=== PATIENT | male | born 1960 | race Caucasian/White ===

== ENCOUNTER → 2018-01-25 | Outpatient (CLI) | payer OTHER ==
[~2018-01-25] MED LIST: ARTHRITIS MEDICATION; CYCLOBENZAPRINE10 MG; MULTIVITAMINS1 EAC7; NORCO 5-325 TA1 EACH PO; VITCB500GO
== END ==
LOC: M.ULTRA 15:22
DX: R22.1 Localized swelling, mass and lump, neck (principal)

== ENCOUNTER 2019-04-22 07:27 | Inpatient (IN) | payer OTHER ==
[~2019-04-22] VITALS: Ht 182.9 cm
[2019-04-22 07:32] VITALS: BP 128/90
[2019-04-22 07:51] LABS: HEMATOCRIT 49.3 % (42.0-52.0); HEMOGLOBIN 16.4 gm/dL (14.0-18.0); MCH 32.6 pg (26.0-34.0); MCHC 33.2 g/dL (28.0-37.0); MCV 98.2 fL (80.0-100.0); MPV 7.1 fl. (7.2-11.1); NUCLEATED RBCS 0 /100WBC; PLATELET COUNT* 227 thou/uL (150-400); RBC 5.02 mil/uL (4.50-6.00); RDW-CV 13.2 % (10.5-14.5)
[2019-04-22 08:02] LABS: ANION GAP 12 mmol/L (7-16); BUN 16 mg/dL (7-18); CALCIUM 9.9 mg/dL (8.5-10.1); CHLORIDE 100 mmol/L (98-107); CO2 25 mmol/L (21-32); CREATININE 1.3 mg/dL (0.6-1.3); GLUCOSE 129 mg/dL (70-99); POTASSIUM 3.4 mmol/L (3.5-5.1); SODIUM 137 mmol/L (136-145)
[2019-04-22 08:11] LABS: ALBUMIN 3.8 g/dL (3.4-5.0); ALKALINE PHOSPHATASE 116 U/L (46-116); LIPASE 89 U/L (73-393); SGOT 19 U/L (15-37); SGPT 18 U/L (30-65); TOTAL BILIRUBIN 1.7 mg/dL (<0.1-1.0); TOTAL PROTEIN 7.4 g/dL (6.4-8.2); TROPONIN-I LEVEL <0.06 ng/mL (<0.06)
[2019-04-22 08:21] LABS: ABSOLUTE LYMPHOCYTES 0.4 thou/uL (0.8-5.3); ABSOLUTE MONOCYTES 0.8 thou/uL (0.0-1.2); ABSOLUTE NEUTROPHILS 11.8 thou/uL (1.6-8.1); PLATELET ESTIMATE ADEQUATE
--- NOTE | 2019-04-22 08:27 | NUR ---
JG NOTIFIED UPON PT RETURN FROM CT. PT CONNECTED TO MONITOR
[2019-04-22 10:26] LABS: PROTIME 10.1 Seconds (9.20-11.50)
[2019-04-22 10:29] VITALS: BP 83/53
[2019-04-22 12:00] VITALS: BP 106/68
[2019-04-22 14:00] VITALS: BP 92/56
--- NOTE | 2019-04-22 15:52 | 2DMMODE ---
[place] [address] 2 D/M-MODE ECHOCARDIOGRAM Name: DOLORES PATEL Room: [address] IN [facility]#: [id number] Admission: 04/22/19 Attend Phys: Larisa Sofia, Discharge: Date of : 58 Date of Service: 04/22/19 1552 Report #: [id number] THIS REPORT FOR: //name// APPROVED REPORT Study performed: 04/22/2019 09:30:40 EXAM: Comprehensive 2D, Doppler, and color-flow Echocardiogram Patient Location: In-Patient Room #: er Status: routine BSA: 1.73 HR: 74 bpm BP: 128/90 mmHg Rhythm: NSR Other Information Study Quality: Good Indications Syncope 2D Dimensions IVSd: 9.83 (7-11mm) LVOT Diam: 20.13 (18-24mm) LVDd: 37.11 mm PWd: 7.79 (7-11mm) LVDs: 21.50 (25-40mm) Aortic Root: 35.13 mm Volumes Left Atrial Volume (Systole) LA ESV Index: 22.00 mL/m2 Aortic Valve AoV Peak Ganesh.: 0.98 m/s AO Peak Gr.: 3.82 mmHg LVOT Max P.82 mmHg AO Mean Gr.: 2.08 mmHg LVOT Mean P.01 mmHg LVOT Max V: 0.67 m/s AO V2 VTI: 14.70 cm LVOT Mean V: 0.48 m/s RADHA (VTI): 2.61 cm2 LVOT V1 VTI: 12.04 cm Mitral Valve E/A Ratio: 1.18 MV Decel. Time: 202.87 ms MV E Max Ganesh.: 0.54 m/[place] [address] 2 D/M-MODE ECHOCARDIOGRAM Name: DOLORES PATEL Room: [address] IN [facility]#: [id number] Admission: 04/22/19 Attend Phys: Larisa Sofia, Discharge: Date of : 58 Date of Service: 04/22/19 1552 Report #: [id number] MV PHT: 58.83 ms MVA (PHT): 3.74 cm2 TDI E/Lateral E': 6.00 E/Medial E': 4.50 Medial E' Ganesh.: 0.12 m/s Lateral E' Ganesh.: 0.09 m/s Pulmonary Valve PV Peak Ganesh.: 0.72 m/s PV Peak Gr.: 2.08 mmHg Tricuspid Valve RAP Estimate: 5.00 mmHg TR Peak Gr.: 20.52 mmHg RVSP: 25.00 mmHg PA Pressure: 25.00 mmHg Left Ventricle The left ventricle is normal size. There is normal LV segmental wall motion. There is normal left ventricular wall thickness. Left ventricular systolic function is normal. LVEF is 60-65%. The left ventricular diastolic function is normal. Right Ventricle The right ventricle is normal size. The right ventricular systolic function is normal. Atria The left atrium size is normal. The right atrium size is normal. Aortic Valve The aortic valve is normal in structure. No aortic regurgitation is present. There is no aortic valvular stenosis. Mitral Valve The mitral valve is normal in structure. There is no mitral valve regurgitation noted. No evidence of mitral valve stenosis. Tricuspid Valve The tricuspid valve is normal in structure. Mild tricuspid regurgitation. No pulmonary hypertension. Pulmonic Valve The pulmonary valve is normal in structure. There is no pulmonic [place] [address] 2 D/M-MODE ECHOCARDIOGRAM Name: DOLORES PATEL Room: [address] IN [facility]#: [id number] Admission: 04/22/19 Attend Phys: Larisa Sofia, Discharge: Date of : 58 Date of Service: 04/22/19 1552 Report #: [id number] Great Vessels The aortic root is normal in size. IVC is normal in size and collapses >50% with inspiration. Pericardium Small anterior pericardial effusion. <Conclusion> The left ventricle is normal size. There is normal left ventricular wall thickness. Left ventricular systolic function is normal. LVEF is 60-65%. The left ventricular diastolic function is normal. There is normal LV segmental wall motion. Mild tricuspid regurgitation. No pulmonary hypertension. IVC is normal in size and collapses >50% with inspiration. Small anterior pericardial effusion. <ELECTRONICALLY SIGNED> By: Jaylon Christiansen MD, FACC 04/22/19 1552 1552 1552 Jaylon Christiansen MD, FACC /INF
--- NOTE | 2019-04-22 16:22 | EKG ---
[place] [address] ELECTROCARDIOGRAM REPORT Name: DOLORES PATEL Room: [place] [address] ADM IN .R.#: [id number] Admission: 04/22/19 Attend Phys: Larisa Sofia MD Discharge: Date of : 58 Report #: [id number] THIS REPORT FOR: //name// [facility] ED Test Date: 2019-04-22 Test Time: 07:32:31 Pat Name: DOLOERS PATEL Department: Room: [facility] Gender: Chief Quality Officer: JAMSHID : 1960 Requested By: James Reid Order Number: [id number] MD: Rudolph Quintero Measurements Intervals [place] Rate: 79 P: 85 [place]: 130 QRS: -73 QRSD: 103 T: 79 QT: 393 QTc: 451 Interpretive Statements Sinus rhythm Biatrial enlargement RSR' in V1 or V2, right VCD or RVH Inferior infarct, old No previous ECG available for comparison Electronically Signed On 04-22-2019 16:22:13 CDT by Rudolph Quintero [email or web address] <ELECTRONICALLY SIGNED> By: Rudolph Quintero MD, [facility] 04/22/19 1622 0732 0732 Rudolph Quintero MD, [facility] /EPI
[2019-04-22 17:56] LABS: URINE BLOOD NEGATIVE (Negative); URINE CLARITY CLEAR; URINE COLOR YELLOW; URINE GLUCOSE-RANDOM NEGATIVE (Negative); URINE KETONES NEGATIVE (Negative); URINE LEUKOCYTES-REFLEX NEGATIVE (Negative); URINE NITRITE-REFLEX NEGATIVE (Negative); URINE PROTEIN TRACE (Negative); URINE SPECIFIC GRAVITY >= 1.030 (1.005-1.030); URINE UROBILINOGEN 0.2 E.U./dl (0.2-1.0)
--- NOTE | 2019-04-22 17:59 | NUR ---
RECEIVED REPORT FROM AT 1400. PT AOX4, UP SBA, O2 SAT 90'S RA. TRACING SR ON TELE. PT COMPLAINS OF PAIN ON R EYE. PAIN MEDS GIVEN. PT HAS CARDIOLOGY CONSULT, FOR US CAROTID. BP IS LOW, ON FLUIDS BOLUS. I AGREE WITH MARCELLA ASSESSMENT. HOURLY ROUNDING. WILL CONTINUE TO MONITOR.
[2019-04-22 18:07] LABS: ICTOTEST (BILI CONFIRMATORY) Negative (Negative); URINE BILIRUBIN 1+ (Negative)
[2019-04-22 18:11] LABS: AMP/METHAMP Negative (Negative); BARBITURATES Negative (Negative); BENZODIAZEPINES Negative (Negative); COCAINE Negative (Negative); METHADONE Negative (Negative); OPIATES POSITIVE (Negative); PCP Negative (Negative); THC POSITIVE (Negative)
[2019-04-22 20:00] VITALS: BP 98/58
[2019-04-23] VITALS: BP 104/70
[2019-04-23 04:00] VITALS: BP 115/76
--- NOTE | 2019-04-23 07:09 | NUR ---
PATIENT SLEPT MOST OF THE NIGHT. IV REMAINS SALINE LOCKED. PATIENT WAS GIVEN PAIN MEDICINE NEEDED. PATIENT HAS HAD NO SYNCOPAL EPISODES. WILL CONTINUE TO MONITOR.
[2019-04-23 08:00] VITALS: BP 121/74
--- NOTE | 2019-04-23 11:13 | NUR ---
ASSUMED PT CARE AT 0800, AOX4, UP AD PEBBLES, O2 SAT 90'S RA. PT COMPLAINS OF R EYE/FACE PAIN. MEDS PER MAR. PT FOR US CAROTID. VSS, AM ASSESSMENT CHARTED. HOURLY ROUNDING, CALL LIGHT WITHIN REACH, WILL CONTINUE TO MONITOR.
[2019-04-23 12:07] VITALS: BP 112/69
--- NOTE | 2019-04-23 13:21 | NUR ---
Nutrition: Pt seen for low BMI. He stated he lost wt when he got cancer; he has been in remission for about a delvin. He just cannot regain the wt again. Current wt is 125#. He weighed 160# before the cancer. He stated he does have a good appetite and eats well. He drinks some shake at home. He agreed to [employer] Ensure - RD ordered. Regular diet. Albumin 3.8. Does not meet criteria for malnutrition at this time. Mild risk.
[2019-04-23] MEDS ORDERED: APAP650 PO (14:38)
[2019-04-23 14:46] VITALS: BP 112/69
--- NOTE | 2019-04-23 15:21 | NUR ---
DISCHARGE PLAN DISCUSSED WITH THE PATIENT. DISCHARGE/MEDS PACKET GIVEN. REMINDED TO FOLLOW UP WITH PCP. TELE, IV REMOVED. LEFT THE UNIT AMBULATORY AT 1520
--- NOTE | 2019-04-24 10:46 | EEG ---
[address] [address] EEG STUDY REPORT Name: JORGEDOLORES Room: [address] IN .R.#: [id number] Admission: 04/22/19 Attend Phys: Larisa Sofia MD Discharge: 04/23/19 Date of : 58 Report #: [id number] THIS REPORT FOR: //name// CC: Trinity Sofia DATE OF SERVICE: 04/22/2019 This patient is being evaluated for an episode of syncope. The patient's EEG was done by placing the electrode by standard 10-20 system of electrode placement. Both referential and sequential montages were used for recording. Background activity in this patient's EEG is about 10 Hz and 30 microvolts. There is a symmetrical activity. This patient became drowsy and that is associated with bilateral slowing and vertex sharp waves. Photic stimulation was unremarkable. Throughout the records, no active epileptiform activity was noticed. IMPRESSION: This patient's EEG is within normal limits. Thank you very much for this referral. <ELECTRONICALLY SIGNED> By: Daniel Blanton MD 04/24/19 1046 1347 1423Pconcha Blanton MD /nt
== END 2019-04-23 15:20 | disposition home or self-care (01) | DRG 312 ==
LOC: M.ERS 07:27 → M.TBA-ER 08:56 → M.2W 08:56
PROVIDERS: Family Medicine; ADMIT Internal Medicine
DX: R55 Syncope and collapse (principal); E86.0 Dehydration; R09.89 Other specified symptoms and signs involving the circulatory and respiratory systems; I45.6 Pre-excitation syndrome; J01.90 Acute sinusitis, unspecified; F12.90 Cannabis use, unspecified, uncomplicated; F17.210 Nicotine dependence, cigarettes, uncomplicated; J44.9 Chronic obstructive pulmonary disease, unspecified; M19.90 Unspecified osteoarthritis, unspecified site; D72.829 Elevated white blood cell count, unspecified; Z92.21 Personal history of antineoplastic chemotherapy; Z85.810 Personal history of malignant neoplasm of tongue; Z92.3 Personal history of irradiation; Z79.1 Long term (current) use of non-steroidal anti-inflammatories (NSAID)